=== PATIENT | male | born 1935 | race Caucasian/White ===

== ENCOUNTER 2016-12-01 05:47 | Inpatient (IN) | payer OTHER ==
[2016-12-01 06:01] VITALS: BMI 25.9
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
[2016-12-01 08:23] LABS: BASOPHIL 0.4 % (0-2.0); MCH 27.5 pg (25.7-33.7); MCHC 32.6 g/dl (32.0-35.9); MEAN CELL VOLUME 84.4 fl (80-96); MEAN PLT VOLUME 6.8 fl (7.5-11.1); NEUTROPHILS 90.5 % (42.8-82.8); PLATELET COUNT 265 K/MM3 (134-434); RDW 19.5 % (11.9-15.9); WHITE BLOOD COUNT 14.4 K/mm3 (4.0-10.0)
[2016-12-01 08:42] LABS: ALBUMIN 4.3 g/dl (3.4-5.0); BILIRUBIN,TOTAL 0.4 mg/dL (0.2-1.0); CALCIUM 9.1 mg/dL (8.5-10.1); COCKROFT - GAULT 39.72; CREATININE 1.6 mg/dL (0.7-1.3); INR 3.98 (0.82-1.09); TOT PROT 7.2 g/dl (6.4-8.2)
[2016-12-01 08:43] LABS: TROPONIN I < 0.02 ng/ml (0.00-0.05)
[2016-12-01 09:20] LABS: URINE APPEARANCE CLEAR; URINE BILIRUBIN NEGATIVE (NEGATIVE); URINE COLOR LTYELLOW; URINE GLUCOSE (UA) NEGATIVE (NEGATIVE); URINE KETONE NEGATIVE (NEGATIVE); URINE LEUK ESTERASE NEGATIVE (NEGATIVE); URINE NITRITE NEGATIVE (NEGATIVE); URINE UROBILINOGEN NEGATIVE E.U./dl (0.2-1.0)
--- NOTE | 2016-12-01 09:22 | EKG ---
Test Reason : Blood Pressure : / mmHG Vent. Rate : 076 BPM Atrial Rate : 076 BPM P-R Int : 134 ms QRS Dur : 082 ms QT Int : 396 ms P-R-T Axes : 074 000 055 degrees QTc Int : 445 ms NORMAL SINUS RHYTHM NORMAL ECG WHEN COMPARED WITH ECG OF 16-OCT-2014 13:43, NO SIGNIFICANT CHANGE WAS FOUND Confirmed by ZEKE MERRITT MD ([id number]) on 12/01/2016 9:22:11 AM Referred By: Confirmed By:ZEKE MERRITT MD
[2016-12-01 09:28] LABS: URINE BLOOD 1+ (NEGATIVE); URINE PROTEIN 1+ (NEGATIVE)
[2016-12-01 09:29] LABS: GRANULAR CASTS 57 /lpf; URINE MUCUS RARE; URINE RBC 1 /hpf (0-3); URINE WBC 1 /hpf (3-5)
--- NOTE | 2016-12-01 12:25 | PN ---
Progress Note (short form) - Note Progress Note: ID Consult dictated 81 y/o male PMH AIDS, COPD, PE/DVT metastatic prostate ca admitted s/p fall Possible sepsis Pending sepsis workup, empiric ceftriaxone
[2016-12-01] MEDS ORDERED: CEFTRIAXONE 50 ML ONE (12:42)
--- NOTE | 2016-12-01 13:13 | CONS ---
DATE OF CONSULTATION: DATE OF DICTATION: 12/01/2016 HISTORY OF PRESENT ILLNESS: The patient is an 81-year-old male evaluated for possible sepsis. The patient reports taking Ambien and an oxycodone last evening before bed. He reports that he woke up at approximately 5:00 a.m. to urinate. Upon getting up, he felt dizzy. Patient had a mechanical fall, sustaining trauma to his extremities. He denies any head trauma or loss of consciousness. He was taken to the emergency room, where he was evaluated. He was noted to have a mildly elevated white blood cell count of 14,000. The patient complains of generalized weakness and lower extremity pain. He has significant peripheral neuropathy secondary to his HIV and also has bone pain secondary to metastatic prostate cancer. He denies any recent febrile illness or shaking chills. No complaints of chest pain, shortness of breath, cough, sputum production. No dysuria or hematuria. No vomiting or diarrhea. PAST MEDICAL HISTORY: Positive for acquired immunodeficiency syndrome. He has been positive for many years. He has been stable for many years on antiretroviral therapy. His viral load has been undetectable. However, T-cell count ranges in the 150 to 200 range. Past medical history also positive for chronic obstructive pulmonary disease, history of pulmonary embolism, DVT, metastatic prostate cancer. ALLERGIES: No known allergies. MEDICATIONS AT HOME: Include Epzicom, Viramune, Bactrim, Coumadin. He received Lupron injections for his metastatic prostate cancer. He also takes Neurontin for peripheral neuropathy. SOCIAL HISTORY: Lives at home. He is a nonsmoker, nondrinker. SYSTEMS REVIEW: Neurologic: No loss of consciousness, seizure activity, focal weakness. Cardiac: Negative chest pain or palpitations. Respiratory: Negative cough or sputum production. Gastrointestinal: Negative vomiting or diarrhea. Genitourinary: Negative for urinary tract infection. LABORATORY DATA: White count 14.4, hematocrit 34.1, platelet count 265. BUN 20, creatinine 1.6, alkaline phosphatase 366. Chest x-ray: Negative for acute infiltrate. PHYSICAL EXAMINATION:General: He is awake and alert. He is weak appearing. Vital Signs: His temperature is 97.1, blood pressure 122/76, pulse 92 and regular, respiration 22 per minute. HEENT: Sclerae anicteric. Dry mucous membranes. Cardiac: Heart sounds S1, S2. Lungs: Crepitations at the right base. Scattered rhonchi. Abdomen: Soft. No tenderness elicited. No mass, rebound, or rigidity. Extremities: Edema 1+. He had some ecchymotic areas present on the left upper extremity. No other bruising noted. IMPRESSION: 1. Status post mechanical fall. 2. Possible sepsis. 3. Acquired immunodeficiency syndrome. 4. Metastatic prostate cancer. 5. History of chronic obstructive pulmonary disease. 6. History of pulmonary embolism and deep vein thrombosis. 7. Coagulopathy. RECOMMENDATIONS: Will admit for possible sepsis. Obtain cultures. Empiric antibiotic with ceftriaxone 1 g IV piggyback daily. Continue antiretroviral therapy and PCP prophylaxis. Hold Coumadin. Will follow. Thank you for the kind referral. ZEKE MUELLER M.D. LIDIA/[id number]
[2016-12-01] MEDS: ALBUTEROL SO4 2.5/IPRATROPIUM 0.5 INH SOL 3 ML VIAL.NEB. NEB SCH ×3 (13:15→13:41)
[2016-12-01] MEDS: SULFAMETHOXAZOLE/TRIMETHOPRIM 800MG/160MG D.S. TABLET PO SCH (13:16)
[2016-12-01] MEDS: ABACAVIR SULFATE 300 MG TABLET PO SCH (13:16)
[2016-12-01] MEDS: NEVIRAPINE 200 MG TABLET PO SCH ×2 (13:16→21:54)
[2016-12-01] MEDS: CEFTRIAXONE 50 ML IVPB SCH (13:16)
[2016-12-01] MEDS: lamiVUDine 150 MG TABLET PO SCH (13:16)
[2016-12-01] MEDS ORDERED: ALBUTEROL SO4 2.5/IPRATROPIUM 0.5 INH SOL 3 ML VIAL.NEB. NEB ONE (13:18)
[2016-12-01] MEDS ORDERED: ALBUTEROL SO4 2.5/IPRATROPIUM 0.5 INH SOL 3 ML VIAL.NEB. NEB PRN (14:10)
--- NOTE | 2016-12-01 14:20 | HP ---
CHIEF COMPLAINT:Fall PCP:[facility] Dr. 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 The patient states that he got up this morning at 5AM, became dizzy, and fell. He denies any head trauma or loss of consciousness. He does report taking oxycodone and ambien before going to bed last night. After he fell he couldn't get up and crawled to the phone to call the ambulance. He states his dizziness was only upon waking up and has now resolved. He lives at home by himself but his sister lives in the same building and she is 90 years old. Patient states he has pain in bilateral lower extremities and his right shoulder. He denies nausea, vomiting, cough, fevers, chills, chest pain, or shortness of breath. He denies hematuria or dysuria. Patient did seem short of breath during the interview but states that this is his breathing at baseline. Patient states he is unsure if he is willing to go to a rehab facility. PCP: Dr. Anurag Beach ER course was notable for: (1)Abx (2)Labs (3)Xrays Recent Travel:Denies PAST MEDICAL HISTORY:as above PAST SURGICAL HISTORY:knee surgery 25 years ago Social History: Smoking:Denies Alcohol:Denies Drugs: Denies Allergies No Known Allergies Allergy (Verified 12/01/16 06:00) HOME MEDICATIONS: Home Medications Medication Instructions Recorded Tenofovir Disoproxil Fumarate 300 mg PO DAILY@0800 #0 tablet 07/09/13 [Viread -] Albuterol Sulfate [Proair Hfa -] 1 - 2 inh PO ASDIR 03/06/14 Gabapentin 300 mg PO TID 03/06/14 Zolpidem Tartrate 10 mg PO DAILY 03/06/14 Abacavir Sulfate/Lamivudine 1 tab PO DAILY 12/01/16 [Epzicom -] Bicalutamide 50 mg PO DAILY 12/01/16 Nevirapine [Viramune] 400 mg PO DAILY 12/01/16 Oxycodone HCl/Acetaminophen 1 tab PO Q8H PRN 12/01/16 [Percocet 5-325 mg Tablet] Sulfamethoxazole/Trimethoprim 1 tab PO DAILY 12/01/16 [Bactrim DS -] Warfarin Sodium [Coumadin] 7 mg PO HS 12/01/16 REVIEW OF SYSTEMS CONSTITUTIONAL: Absent: fever, chills, diaphoresis, generalized weakness, malaise, loss of appetite, weight change HEENT: Absent: rhinorrhea, nasal congestion, throat pain, throat swelling, difficulty swallowing, mouth swelling, ear pain, eye pain, visual changes CARDIOVASCULAR: Absent: chest pain, syncope, palpitations, irregular heart rate, lightheadedness , peripheral edema RESPIRATORY: Absent: cough, shortness of breath, dyspnea with exertion, orthopnea, wheezing, stridor, hemoptysis GASTROINTESTINAL: Absent: abdominal pain, abdominal distension, nausea, vomiting, diarrhea, constipation, melena, hematochezia GENITOURINARY: Absent: dysuria, frequency, urgency, hesitancy, hematuria, flank pain, genital pain MUSCULOSKELETAL: Absent: myalgia, arthralgia, joint swelling, back pain, neck pain Present: Bilateral lower extremity pain and left shoulder pain SKIN: Absent: rash, itching, pallor HEMATOLOGIC/IMMUNOLOGIC: Absent: easy bleeding, easy bruising, lymphadenopathy, frequent infections ENDOCRINE: Absent: unexplained weight gain, unexplained weight loss, heat intolerance, cold intolerance NEUROLOGIC: Absent: headache, focal weakness or paresthesias, unsteady gait, seizure, mental status changes, bladder or bowel incontinence Present: dizziness PSYCHIATRIC: Absent: anxiety, depression, suicidal or homicidal ideation, hallucinations. Initial Vital Signs Temp Pulse Resp BP Pulse Ox 97.1 F L 92 H 22 122/76 98 12/01/16 06:00 12/01/16 06:00 12/01/16 06:00 12/01/16 06:00 12/01/16 06:00 PHYSICAL EXAMINATION GENERAL: Awake, alert, and fully oriented, in no acute distress HEAD: No signs of trauma EYES: PERRLA, EOMI, sclera anicteric, conjunctiva clear ENT: Auricles normal inspection, hearing grossly normal, nares patent, oropharynx clear without exudates. Moist mucosa NECK: Normal ROM, supple, no lymphadenopathy, JVD, or masses LUNGS: Breath sounds equal, clear to auscultation bilaterally. No wheezes, and no crackles HEART: Regular rate and rhythm, normal S1 and S2, no murmurs, rubs or gallops ABDOMEN: Soft, nontender, normoactive bowel sounds. No guarding, no rebound. No masses EXTREMITIES: R shoulder with mild tenderness to the proximal humerus. Remainder of extremities with normal range of motion, no edema. No clubbing or cyanosis. No cords, erythema, or tenderness NEUROLOGICAL: Cranial nerves II through XII grossly intact. Normal speech. Motor and sensation intact. SKIN: Warm, Dry, normal turgor, no rashes. Scattered ecchymoses to B/L forearms. CXR: Chronic lung disease no acute pathology all hip pelvis and shoulder XRays no acute pathology/sclerotic bone changes Active Medications Generic Name Dose Route Start Last Admin Trade Name Freq PRN Reason Stop Dose Admin Abacavir Sulfate 600 mg 12/01/16 12:30 12/01/16 13:16 Ziagen - PO 600 mg DAILY SERENE Administration Albuterol Sulfate 1 amp 12/01/16 14:15 12/01/16 14:46 Ventolin 0.083% Nebulizer Soln - NEB 1 amp QIDR SERENE Administration Albuterol/Ipratropium 1 amp 12/01/16 14:10 Duoneb - NEB Q4H PRN SHORTNESS OF BREATH Bicalutamide 50 mg 12/02/16 10:00 Casodex - PO DAILY SERENE Gabapentin 300 mg 12/01/16 22:00 Neurontin - PO TID SERENE Ceftriaxone Sodium 50 mls @ 200 mls/hr 12/01/16 12:30 12/01/16 13:16 Rocephin 1gm Ivpb (Pre-Docked) IVPB 200 mls/hr DAILY SERENE Administration Lamivudine 300 mg 12/01/16 12:30 12/01/16 13:16 Epivir - PO 300 mg DAILY SERENE Administration Nevirapine 200 mg 12/01/16 12:30 12/01/16 13:16 Viramune - PO 200 mg BID SERENE Administration Tramadol HCl 50 mg 12/01/16 14:54 Ultram - PO Q6H PRN PAIN Trimethoprim/Sulfamethoxazole 1 each 12/01/16 12:45 12/01/16 13:16 Bactrim Ds - PO 1 each DAILY SERENE Administration ASSESSMENT/PLAN: 81M with multiple medical problems presents to the ER s/p fall found to have supratherapeutic INR and leukocytosis in this immunocopmromised patient Sepsis: HR >90 with leukocytosis. Source remains unknown Admit to Med/Surg ID consult appreciated-empiric rocephin and bactrim UA negative f/u UCx f/u BCx trend WBC count history of DVT/PE-supratherapeutic INR: Hold coumadin for now Trend INR Transfuse FFP for any signs of bleeding Fall: likely from a combination of ambien and percocet taken night before Hold Percocet Hold ambien for now Fall precautions PT consult might need SNF for rehab HIV: Last CD4 <200 Viral load undetectable ID consult appreciated Bactrim DS 1 tab PO daily Ziagen Epivir and Viramune per ID COPD/Asthma:not in exacerbation f/u pulmonology consult-Dr. Erickson consulted by ED Marylin standing Albuterol PRN Prostate Ca: Continue Casodex Chronic pain: from metastasis to bone: continue gabapentin hold percocet give ultram PRN pain HTN: well controlled not on meds trend BP FEN: No IVF No electrolyte issues Regular diet PPx: SCDs/INR is supratherapeutic at this time No GI PPx indicated will start medication is has symptomatic GERD PT consult Visit type - Emergency Visit Emergency Visit: Yes ED Registration Date: 12/01/16 Care time: The patient presented to the Emergency Department on the above date and was hospitalized for further evaluation of their emergent condition. - New Patient This patient is new to me today: Yes Date on this admission: 12/01/16 - Critical Care Critical Care patient: No
[2016-12-01] MEDS ORDERED: ALBUTEROL SO4 0.083% IH SOL 2.5 MG/3 ML VIAL.NEB. NEB ONE (14:42)
[2016-12-01] MEDS: ALBUTEROL SO4 0.083% IH SOL 2.5 MG/3 ML VIAL.NEB. NEB SCH ×2 (14:46→18:39)
[2016-12-01] MEDS ORDERED: traMADol HCL 50 MG TABLET PO PRN (14:54)
--- NOTE | 2016-12-01 16:04 | CON.PULM ---
Consult - History of Present Illness Chief Complaint: weakness, recent fall History of Present Illness: 81 year old male with long history HIV, chronic interstitial lung disease, DM, peripheral neuropathy and history of DVT had a mechanical fall without LOC or head trauma. Pt feels weak and has malaise. He has chronic dyspnea and uses O2 at home but denies recent increase in dyspnea. No sputum, chest pain or palpitations. - History Source History Provided By: Patient, Medical Record Limitations to Obtaining History: Clinical Condition - Alcohol/Substance Use Hx Alcohol Use: No - Smoking History Smoking history: Never smoked Have you smoked in the past 12 months: No Aproximately how many cigarettes per day: 0 Home Medications - Allergies Allergies/Adverse Reactions: Allergies Allergy/AdvReac Type Severity Reaction Status Date / Time No Known Allergies Allergy Verified 12/01/16 06:00 - Home Medications Home Medications: Ambulatory Orders Tenofovir Disoproxil Fumarate [Viread -] 300 mg PO DAILY@0800 #0 tablet Albuterol Sulfate [Proair Hfa -] 1 - 2 inh PO ASDIR 03/06/14 Gabapentin 300 mg PO TID 03/06/14 Zolpidem Tartrate 10 mg PO DAILY 03/06/14 Abacavir Sulfate/Lamivudine [Epzicom -] 1 tab PO DAILY 12/01/16 Bicalutamide 50 mg PO DAILY 12/01/16 Nevirapine [Viramune] 400 mg PO DAILY 12/01/16 Oxycodone HCl/Acetaminophen [Percocet 5-325 mg Tablet] 1 tab PO Q8H PRN Sulfamethoxazole/Trimethoprim [Bactrim DS -] 1 tab PO DAILY 12/01/16 Warfarin Sodium [Coumadin] 7 mg PO HS 12/01/16 Review of Systems - Review of Systems Constitutional: denies: Chills, Fever Cardiovascular: denies: Chest Pain, Edema, Palpitations Respiratory: reports: SOB. denies: Cough, Hemoptysis, Wheezing Gastrointestinal: denies: Abdominal Pain, Rectal Bleeding, Vomiting Blood Neurological: reports: Unsteady Gait. denies: Change in LOC, Confusion, Seizure , Syncope Physical Exam Vital Sings: Vital Signs Temperature 97.1 F L 12/01/16 06:00 Pulse Rate 89 12/01/16 15:23 Respiratory Rate 20 12/01/16 15:23 Blood Pressure 101/55 12/01/16 15:23 O2 Sat by Pulse Oximetry (%) 95 12/01/16 15:23 Imaging - Results Chest X-ray: Report Reviewed, Image Reviewed (interstitial lung changes unchanged from 10/04) Problem List - Problems (1) Fall Code(s): W19.XXXA - UNSPECIFIED FALL, INITIAL ENCOUNTER Qualifiers: Encounter type: initial encounter Qualified Code(s): W19.XXXA - Unspecified fall, initial encounter (2) COPD (chronic obstructive pulmonary disease) Code(s): J44.9 - CHRONIC OBSTRUCTIVE PULMONARY DISEASE, UNSPECIFIED (3) HIV (human immunodeficiency virus infection) Code(s): Z21 - ASYMPTOMATIC HUMAN IMMUNODEFICIENCY VIRUS INFECTION STATUS (4) Prostate carcinoma Code(s): C61 - MALIGNANT NEOPLASM OF PROSTATE Assessment/Plan 81 year old male with history interstitial lung disease, COPD, P.E., DVT, HIV, Prostate Ca who had a mechanical fall without LOC. Pt has reduced lung function times many years but pt's lung function appears stable at present. Suggest Albuterol PRN O2 to maintain SaO2 >90 If dyspnea increases would increase bronchodilators . Thank you for referring this patient for consultation.
--- NOTE | 2016-12-01 16:49 | PN ---
Teaching Attending Note Name of Resident: Navjot Richey ATTENDING PHYSICIAN STATEMENT I saw and evaluated the patient. I reviewed the resident's note and discussed the case with the resident. I agree with the resident's findings and plan as documented. Vital Signs Temperature 97.1 F L 12/01/16 06:00 Pulse Rate 89 12/01/16 15:23 Respiratory Rate 20 12/01/16 15:23 Blood Pressure 101/55 12/01/16 15:23 O2 Sat by Pulse Oximetry (%) 95 12/01/16 15:23 CBCD WBC 14.4 K/mm3 (4.0-10.0) H D 12/01/16 08:10 RBC 4.04 M/mm3 (4.00-5.60) 12/01/16 08:10 Hgb 11.1 GM/dL (11.7-16.9) L 12/01/16 08:10 Hct 34.1 % (35.4-49) L 12/01/16 08:10 MCV 84.4 fl (80-96) 12/01/16 08:10 MCHC 32.6 g/dl (32.0-35.9) 12/01/16 08:10 RDW 19.5 % (11.9-15.9) H D 12/01/16 08:10 Plt Count 265 K/MM3 (134-434) 12/01/16 08:10 MPV 6.8 fl (7.5-11.1) L 12/01/16 08:10 CMP Sodium 135 mmol/L (136-145) L 12/01/16 08:10 Potassium 4.3 mmol/L (3.5-5.1) 12/01/16 08:10 Chloride 101 mmol/L (98-107) 12/01/16 08:10 Carbon Dioxide 26 mmol/L (21-32) 12/01/16 08:10 Anion Gap 8 (8-16) 12/01/16 08:10 BUN 20 mg/dL (7-18) H D 12/01/16 08:10 Creatinine 1.6 mg/dL (0.7-1.3) H D 12/01/16 08:10 Creat Clearance w eGFR 41.69 (>60) 12/01/16 08:10 Random Glucose 113 mg/dL (74-106) H 12/01/16 08:10 Calcium 9.1 mg/dL (8.5-10.1) 12/01/16 08:10 Total Bilirubin 0.4 mg/dL (0.2-1.0) D 12/01/16 08:10 AST 37 U/L (15-37) D 12/01/16 08:10 ALT 26 U/L (12-78) D 12/01/16 08:10 Alkaline Phosphatase 366 U/L (45-117) H 12/01/16 08:10 Total Protein 7.2 g/dl (6.4-8.2) 12/01/16 08:10 Albumin 4.3 g/dl (3.4-5.0) D 12/01/16 08:10 CARDIAC ENZYMES Creatine Kinase 124 IU/L (39-308) 12/01/16 08:10 Troponin I < 0.02 ng/ml (0.00-0.05) 12/01/16 08:10 Current Medications Generic Name Dose Route Start Last Admin Trade Name Freq PRN Reason Stop Dose Admin Abacavir Sulfate 600 mg 12/01/16 12:30 12/01/16 13:16 Ziagen - PO 600 mg DAILY SERENE Administration Albuterol Sulfate 1 amp 12/01/16 14:15 12/01/16 14:46 Ventolin 0.083% Nebulizer Soln - NEB 1 amp QIDR [facility]ENE Administration Albuterol/Ipratropium 1 amp 12/01/16 14:10 Duoneb - NEB Q4H PRN SHORTNESS OF BREATH Bicalutamide 50 mg 12/02/16 10:00 Casodex - PO DAILY SER[facility] Gabapentin 300 mg 12/01/16 22:00 Neurontin - PO TID SERENE Ceftriaxone Sodium 50 mls @ 200 mls/hr 12/01/16 12:30 12/01/16 13:16 Rocephin 1gm Ivpb (Pre-Docked) IVPB 200 mls/hr DAILY [facility] Administration Lamivudine 300 mg 12/01/16 12:30 12/01/16 13:16 Epivir - PO 300 mg DAILY [facility] Administration Nevirapine 200 mg 12/01/16 12:30 12/01/16 13:16 Viramune - PO 200 mg BID [facility] Administration Tramadol HCl 50 mg 12/01/16 14:54 Ultram - PO Q6H PRN PAIN Trimethoprim/Sulfamethoxazole 1 each 12/01/16 12:45 12/01/16 13:16 Bactrim Ds - PO 1 each DAILY [facility] Administration Home Medications Medication Instructions Recorded Tenofovir Disoproxil Fumarate 300 mg PO DAILY@0800 #0 tablet 07/09/13 [Viread -] Albuterol Sulfate [Proair Hfa -] 1 - 2 inh PO ASDIR 03/06/14 Gabapentin 300 mg PO TID 03/06/14 Zolpidem Tartrate 10 mg PO DAILY 03/06/14 Abacavir Sulfate/Lamivudine 1 tab PO DAILY 12/01/16 [Epzicom -] Bicalutamide 50 mg PO DAILY 12/01/16 Nevirapine [Viramune] 400 mg PO DAILY 12/01/16 Oxycodone HCl/Acetaminophen 1 tab PO Q8H PRN 12/01/16 [Percocet 5-325 mg Tablet] Sulfamethoxazole/Trimethoprim 1 tab PO DAILY 12/01/16 [Bactrim DS -] Warfarin Sodium [Coumadin] 7 mg PO HS 12/01/16 PE/ROS: as per resident's note ASSESSMENT AND PLAN: Patient is a 81M with multiple medical problems presents to the ER s/p fall found to have supratherapeutic INR and leukocytosis in this immunocompromised patient(HIV patient with CD4 count of 150) # Sepsis: with acute leukocytosis source unknown at this time ; ID consult appreciated-empiric rocephin and bactrim was started. UA negative ;f/u UCx ;f/u BCx ;trend WBC count #HIV: Last CD4 <200 Viral load undetectable ;ID consult appreciated Bactrim DS 1 tab PO daily ;Ziagen Epivir and Viramune per ID to continue discussed with # history of DVT/PE (recurrent PEs) with supratherapeutic INR: Hold coumadin for now , repeat PT/INR in am Transfuse FFP for any signs of bleeding # s/p Fall: likely from a combination of ambien and percocet taken night before hold ambien and percocet might need SNF for rehab , PT evaluation # hx of End stage COPD/Asthma: Dr. 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
[2016-12-01] MEDS ORDERED: ACETAMINOPHEN 325 MG TABLET (FP) PO PRN (19:14)
[2016-12-01] MEDS ORDERED: SODIUM CHLORIDE 0.45% 1,000 ML IV SCH ×2 (19:30)
[2016-12-01] MEDS ORDERED: PT OWN MED DRAWER 7, Y5N ONE (21:01)
[2016-12-01] MEDS: GABAPENTIN 300 MG CAPSULE (FP) PO SCH (21:52)
[2016-12-01] MEDS: traMADol HCL 50 MG TABLET PO PRN (22:04)
[2016-12-02] MEDS: ALBUTEROL SO4 0.083% IH SOL 2.5 MG/3 ML VIAL.NEB. NEB SCH ×5 (00:47→23:30)
[2016-12-02] MEDS: GABAPENTIN 300 MG CAPSULE (FP) PO SCH ×3 (06:29→21:31)
[2016-12-02 08:00] LABS: MCH 28.1 pg (25.7-33.7); MCHC 33.2 g/dl (32.0-35.9); MEAN CELL VOLUME 84.7 fl (80-96); MEAN PLT VOLUME 6.8 fl (7.5-11.1); PLATELET COUNT 214 K/MM3 (134-434); RDW 19.3 % (11.9-15.9); WHITE BLOOD COUNT 9.3 K/mm3 (4.0-10.0)
[2016-12-02 08:06] LABS: CALCIUM 8.1 mg/dL (8.5-10.1); COCKROFT - GAULT 48.89; CREATININE 1.3 mg/dL (0.7-1.3)
[2016-12-02 08:13] LABS: PROTHROMBIN TIME (PATIENT) 46.8 SEC (9.98-11.88)
[2016-12-02 08:29] LABS: INR 4.13 (0.82-1.09)
--- NOTE | 2016-12-02 09:33 | PN ---
Physical Exam: SUBJECTIVE: Patient seen and examined Patient is comfortable, no fever or chills, no shortness of breath. OBJECTIVE: Vital Signs Temperature 98.7 F 12/02/16 06:00 Pulse Rate 79 12/02/16 06:00 Respiratory Rate 20 12/02/16 06:00 Blood Pressure 104/50 12/02/16 06:00 O2 Sat by Pulse Oximetry (%) 95 12/01/16 15:23 GENERAL: The patient is awake, alert, and fully oriented, in no acute distress. HEAD: Normal with no signs of trauma. EYES: PERRL, extraocular movements intact, sclera anicteric, conjunctiva clear. ENT: Ears normal, oropharynx clear without exudates, moist mucous membranes. NECK: Trachea midline, full range of motion, supple. LUNGS: decreased Breath sounds at the basis , no wheezes, no crackles, no accessory muscle use. HEART: Regular rate and rhythm, S1, S2 without murmur, rub or gallop. ABDOMEN: Soft, nontender, nondistended, normoactive bowel sounds, no guarding, no rebound, no hepatosplenomegaly, no masses. EXTREMITIES: 2+ pulses, warm, well-perfused, no edema. NEUROLOGICAL: Cranial nerves II through XII grossly intact. Normal speech, gait not observed. PSYCH: Normal mood, normal affect. SKIN: Warm, dry, normal turgor, no rashes or lesions noted Laboratory Results - last 24 hr 12/02/16 12/02/16 12/02/16 06:00 06:00 06:00 WBC 9.3 D RBC 3.14 L D Hgb 8.8 L D Hct 26.6 L D MCV 84.7 MCHC 33.2 RDW 19.3 H Plt Count 214 MPV 6.8 L INR 4.13 H* Sodium 142 Potassium 4.6 Chloride 109 H Carbon Dioxide 25 Anion Gap 8 BUN 20 H Creatinine 1.3 Random Glucose 99 Calcium 8.1 L Active Medications Generic Name Dose Route Start Last Admin Trade Name Freq PRN Reason Stop Dose Admin Abacavir Sulfate 600 mg 12/01/16 12:30 12/01/16 13:16 Ziagen - PO 600 mg DAILY SERENE Administration Acetaminophen 325 mg 12/01/16 19:14 Tylenol - PO Q8H PRN FEVER OR PAIN Albuterol Sulfate 1 amp 12/01/16 14:15 12/02/16 06:58 Ventolin 0.083% Nebulizer Soln - NEB 1 amp QIDR SERENE Administration Albuterol/Ipratropium 1 amp 12/01/16 14:10 Duoneb - NEB Q4H PRN SHORTNESS OF BREATH Bicalutamide 50 mg 12/02/16 10:00 Casodex - PO DAILY SERENE Gabapentin 300 mg 12/01/16 22:00 12/02/16 06:29 Neurontin - PO 300 mg TID SER[facility] Administration Ceftriaxone Sodium 50 mls @ 200 mls/hr 12/01/16 12:30 12/01/16 13:16 Rocephin 1gm Ivpb (Pre-Docked) IVPB 200 mls/hr DAILY [facility] Administration Sodium Chloride 1,000 mls @ 42 mls/hr 12/01/16 19:30 12/01/16 21:53 1/2 Normal Saline IV 12/02/16 19:19 42 mls/hr ASDIR [facility] Administration Lamivudine 300 mg 12/01/16 12:30 12/01/16 13:16 Epivir - PO 300 mg DAILY [facility] Administration Nevirapine 200 mg 12/01/16 12:30 12/01/16 21:54 Viramune - PO 200 mg BID SERENE Administration Tramadol HCl 25 mg 12/01/16 19:13 12/01/16 22:04 Ultram - PO 25 mg Q8H PRN Administration PAIN Trimethoprim/Sulfamethoxazole 1 each 12/01/16 12:45 12/01/16 13:16 Bactrim Ds - PO 1 each DAILY SERENE Administration ASSESSMENT/PLAN: Patient is a 81M with multiple medical problems presents to the ER s/p fall found to have supratherapeutic INR and leukocytosis in this immunocopmromised patient(HIV patient with CD4 count of 150) # Sepsis: with acute leukocytosis source unknown at this time but improving; as per ID to continue empiric rocephin and bactrim UA negative ;pending UCx & BCx , WBC count improving #HIV: Last CD4 <200 Viral load undetectable ;ID on the case , placed the patient on Bactrim DS 1 tab PO daily ;Ziagen Epivir and Viramune per ID # history of DVT/PE (recurrent PEs) with supratherapeutic INR: Hold coumadin for now , repeat PT/INR in am Transfuse FFP for any signs of bleeding # s/p Fall: likely from a combination of ambien and percocet taken night before hold ambien and percocet might need SNF for rehab , PT evaluation # hx of End stage COPD/Asthma: consult-Dr. 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
[2016-12-02] MEDS ORDERED: PT OWN MED DRAWER 7, Y5N ONE ×3 (09:39→21:18)
[2016-12-02] MEDS: CEFTRIAXONE 50 ML IVPB SCH (09:53)
[2016-12-02] MEDS: ABACAVIR SULFATE 300 MG TABLET PO SCH (09:54)
[2016-12-02] MEDS: NEVIRAPINE 200 MG TABLET PO SCH ×2 (09:54→21:32)
[2016-12-02] MEDS: BICALUTAMIDE 50 MG TABLET (FP) PO SCH (09:54)
[2016-12-02] MEDS: SULFAMETHOXAZOLE/TRIMETHOPRIM 800MG/160MG D.S. TABLET PO SCH (09:54)
[2016-12-02] MEDS: lamiVUDine 150 MG TABLET PO SCH (09:54)
--- NOTE | 2016-12-02 10:24 | PN ---
Progress Note, Physician History of Present Illness: C/O generalized weakness, bilateral leg pains/numbness (chronic) No c/o fever/ chills Afebrile WBC normal Cultures prelim no growth - Current Medication List Current Medications: Active Medications Abacavir Sulfate (Ziagen -) 600 mg PO DAILY [facility] Last Admin: 12/02/16 09:54 Dose: 600 mg Acetaminophen (Tylenol -) 325 mg PO Q8H PRN PRN Reason: FEVER OR PAIN Albuterol Sulfate (Ventolin 0.083% Nebulizer Soln -) 1 amp NEB QIDR [facility] Last Admin: 12/02/16 06:58 Dose: 1 amp Albuterol/Ipratropium (Duoneb -) 1 amp NEB Q4H PRN PRN Reason: SHORTNESS OF BREATH Bicalutamide (Casodex -) 50 mg PO DAILY [facility] Last Admin: 12/02/16 09:54 Dose: 50 mg Gabapentin (Neurontin -) 300 mg PO TID [facility] Last Admin: 12/02/16 06:29 Dose: 300 mg Ceftriaxone Sodium (Rocephin 1gm Ivpb (Pre-Docked)) 50 mls @ 200 mls/hr IVPB DAILY [facility] Last Admin: 12/02/16 09:53 Dose: 200 mls/hr Sodium Chloride (1/2 Normal Saline) 1,000 mls @ 42 mls/hr IV ASDIR [facility] Stop: 12/02/16 19:19 Last Admin: 12/01/16 21:53 Dose: 42 mls/hr Lamivudine (Epivir -) 300 mg PO DAILY [facility] Last Admin: 12/02/16 09:54 Dose: 300 mg Nevirapine (Viramune -) 200 mg PO BID [facility] Last Admin: 12/02/16 09:54 Dose: 200 mg Tramadol HCl (Ultram -) 25 mg PO Q8H PRN PRN Reason: PAIN Last Admin: 12/01/16 22:04 Dose: 25 mg Trimethoprim/Sulfamethoxazole (Bactrim Ds -) 1 each PO DAILY [facility] Last Admin: 12/02/16 09:54 Dose: 1 each - Objective Vital Signs: Vital Signs Temperature 98.7 F 12/02/16 06:00 Pulse Rate 79 12/02/16 06:00 Respiratory Rate 20 12/02/16 06:00 Blood Pressure 104/50 12/02/16 06:00 O2 Sat by Pulse Oximetry (%) 95 12/01/16 15:23 Constitutional: Yes: No Distress Eyes: Yes: Other (+ ecchymotic area below R eye (not present yesterday)) Cardiovascular: Yes: Regular Rate and Rhythm, S1, S2 Respiratory: Yes: CTA Bilaterally Gastrointestinal: Yes: Normal Bowel Sounds, Soft. No: Tenderness Edema: Yes Edema: LLE: 1+, RLE: 1+ Labs: CBC, BMP 12/02/16 06:00 12/02/16 06:00 INR, PTT INR 4.13 (0.82-1.09) H* 12/02/16 06:00 Assessment/Plan S/P mechanical fall Coagulopathy secondary to coumadin Leukocytosis-resolved AIDS COPD Hx PE/DVT D/C ceftriaxone after today's dose, observe Continue ART/PCP prophylaxis
[2016-12-02] MEDS ORDERED: RANITIDINE HCL 150 MG TABLET (FP) PO ONE (12:05)
--- NOTE | 2016-12-02 17:24 | CONSULT ---
Consult Consult Specialty:: Nephrology Reason for Consultation:: elevated creatinine and hyponatremia - History of Present Illness Chief Complaint: presented s/p fall History of Present Illness: Pt is an 81 year old male with pmhx of HIV, COPD, GERD, HTN and anxiety who presents to the ER s/p fall. He was says she woke up in the morning and found himself dizzy and fell. He was found to have elevated creatinine and was found to be hyponatremic. He denies history of CKD. He is awake and alert. He denies dysuria or hematuria. He responded to fluids overnight. - History Source History Provided By: Patient, Medical Record - Past Medical History Cardio/Vascular: Yes: HTN Pulmonary: Yes: COPD Infectious Disease: Yes: HIV Psych: Yes: Anxiety - Alcohol/Substance Use Hx Alcohol Use: No - Smoking History Smoking history: Never smoked Have you smoked in the past 12 months: No Aproximately how many cigarettes per day: 0 Home Medications - Allergies Allergies/Adverse Reactions: Allergies Allergy/AdvReac Type Severity Reaction Status Date / Time No Known Allergies Allergy Verified 12/01/16 06:00 - Home Medications Home Medications: Ambulatory Orders Tenofovir Disoproxil Fumarate [Viread -] 300 mg PO DAILY@0800 #0 tablet Albuterol Sulfate [Proair Hfa -] 1 - 2 inh PO ASDIR 03/06/14 Gabapentin 300 mg PO TID 03/06/14 Zolpidem Tartrate 10 mg PO DAILY 03/06/14 Abacavir Sulfate/Lamivudine [Epzicom -] 1 tab PO DAILY 12/01/16 Bicalutamide 50 mg PO DAILY 12/01/16 Nevirapine [Viramune] 400 mg PO DAILY 12/01/16 Oxycodone HCl/Acetaminophen [Percocet 5-325 mg Tablet] 1 tab PO Q8H PRN Sulfamethoxazole/Trimethoprim [Bactrim DS -] 1 tab PO DAILY 12/01/16 Warfarin Sodium [Coumadin] 7 mg PO HS 12/01/16 Family Disease History - Family Disease History Family History: Denies Review of Systems - Review of Systems Constitutional: reports: No Symptoms Eyes: reports: No Symptoms HENT: reports: No Symptoms Neck: reports: No Symptoms Cardiovascular: reports: No Symptoms Respiratory: reports: No Symptoms Gastrointestinal: reports: No Symptoms Genitourinary: reports: No Symptoms Musculoskeletal: reports: No Symptoms Integumentary: reports: No Symptoms Neurological: reports: Dizziness Endocrine: reports: No Symptoms Hematology/Lymphatic: reports: No Symptoms Physical Exam Vital Signs: Vital Signs Temperature 98.1 F 12/02/16 13:51 Pulse Rate 73 12/02/16 13:51 Respiratory Rate 20 12/02/16 13:51 Blood Pressure 104/50 12/02/16 06:00 O2 Sat by Pulse Oximetry (%) 95 12/02/16 09:00 Constitutional: Yes: Calm Neck: Yes: Supple Cardiovascular: Yes: S1, S2 Respiratory: Yes: CTA Bilaterally Gastrointestinal: Yes: Soft Renal/: Yes: WNL Musculoskeletal: Yes: Muscle Weakness Edema: No Neurological: Yes: Oriented Psychiatric: Yes: Oriented Labs: CBC, BMP 12/02/16 06:00 12/02/16 06:00 Laboratory Tests 12/01/16 12/01/16 12/01/16 08:10 08:10 08:55 WBC 14.4 H D Hgb 11.1 L Sodium 135 L Potassium 4.3 Chloride Carbon Dioxide Anion Gap BUN 20 H D Creatinine 1.6 H D Random Glucose Calcium Urine Color Ltyellow Urine Appearance Clear Urine pH 5.0 Ur Specific Ary 1.020 Urine Protein 1+ H Urine Glucose (UA) Negative Urine Ketones Negative Urine Blood 1+ H Urine Nitrite Negative Urine Bilirubin Negative Urine Urobilinogen Negative Ur Leukocyte Esterase Negative 12/02/16 12/02/16 06:00 06:00 WBC Hgb 8.8 L D Sodium 142 Potassium 4.6 Chloride 109 H Carbon Dioxide 25 Anion Gap 8 BUN 20 H Creatinine 1.3 Random Glucose 99 Calcium 8.1 L Urine Color Urine Appearance Urine pH Ur Specific Ary Urine Protein Urine Glucose (UA) Urine Ketones Urine Blood Urine Nitrite Urine Bilirubin Urine Urobilinogen Ur Leukocyte Esterase Imaging - Results Chest X-ray: Report Reviewed Problem List - Problems (1) COPD (chronic obstructive pulmonary disease) Code(s): J44.9 - CHRONIC OBSTRUCTIVE PULMONARY DISEASE, UNSPECIFIED (2) Fall Code(s): W19.XXXA - UNSPECIFIED FALL, INITIAL ENCOUNTER Qualifiers: Encounter type: initial encounter Qualified Code(s): W19.XXXA - Unspecified fall, initial encounter (3) HIV (human immunodeficiency virus infection) Code(s): Z21 - ASYMPTOMATIC HUMAN IMMUNODEFICIENCY VIRUS INFECTION STATUS (4) Weakness Code(s): R53.1 - WEAKNESS (5) Hyponatremia Code(s): E87.1 - HYPO-OSMOLALITY AND HYPONATREMIA (6) Dehydration Code(s): E86.0 - DEHYDRATION Assessment/Plan Current Medications Generic Name Dose Route Start Last Admin Trade Name Freq PRN Reason Stop Dose Admin Abacavir Sulfate 600 mg 12/01/16 12:30 12/02/16 09:54 Ziagen - PO 600 mg DAILY [facility] Administration Acetaminophen 325 mg 12/01/16 19:14 Tylenol - PO Q8H PRN FEVER OR PAIN Albuterol Sulfate 1 amp 12/01/16 14:15 12/02/16 11:49 Ventolin 0.083% Nebulizer Soln - NEB Not Given QIDR SERENE Albuterol/Ipratropium 1 amp 12/01/16 14:10 Duoneb - NEB Q4H PRN SHORTNESS OF BREATH Bicalutamide 50 mg 12/02/16 10:00 12/02/16 09:54 Casodex - PO 50 mg DAILY [facility] Administration Gabapentin 300 mg 12/01/16 22:00 12/02/16 14:47 Neurontin - PO 300 mg TID [facility] Administration Ceftriaxone Sodium 50 mls @ 200 mls/hr 12/01/16 12:30 12/02/16 09:53 Rocephin 1gm Ivpb (Pre-Docked) IVPB 200 mls/hr DAILY [facility] Administration Sodium Chloride 1,000 mls @ 42 mls/hr 12/01/16 19:30 12/01/16 21:53 1/2 Normal Saline IV 12/02/16 19:19 42 mls/hr ASDIR [facility] Administration Lamivudine 300 mg 12/01/16 12:30 12/02/16 09:54 Epivir - PO 300 mg DAILY [facility] Administration Nevirapine 200 mg 12/01/16 12:30 12/02/16 09:54 Viramune - PO 200 mg BID [facility] Administration Ranitidine HCl 150 mg 12/02/16 22:00 Zantac - PO BID [facility]ENE Tramadol HCl 25 mg 12/01/16 19:13 12/01/16 22:04 Ultram - PO 25 mg Q8H PRN Administration PAIN Trimethoprim/Sulfamethoxazole 1 each 12/01/16 12:45 12/02/16 09:54 Bactrim Ds - PO 1 each DAILY [facility] Administration Impression 1. hyponatremia resolved 2. dehydration 3. HIV 4. HTN 5. COPD Plan - cont fluids - repeat labs in am - renal function improving - change fluids to ns - will follow - elevated creatinine likely from dehydration - check renal ultrasound Dr Schrader
[2016-12-02] MEDS: SODIUM CHLORIDE 1,000 ML IV SCH (18:45)
[2016-12-02] MEDS: RANITIDINE HCL 150 MG TABLET (FP) PO SCH (21:31)
[2016-12-03] MEDS: SODIUM CHLORIDE 1,000 ML IV SCH (06:18)
[2016-12-03] MEDS: GABAPENTIN 300 MG CAPSULE (FP) PO SCH ×3 (06:19→21:34)
[2016-12-03] MEDS: ALBUTEROL SO4 0.083% IH SOL 2.5 MG/3 ML VIAL.NEB. NEB SCH ×4 (06:29→23:16)
[2016-12-03 07:56] LABS: CALCIUM 8.8 mg/dL (8.5-10.1)
[2016-12-03 07:58] LABS: COCKROFT - GAULT 57.78; CREATININE 1.1 mg/dL (0.7-1.3)
[2016-12-03] MEDS ORDERED: PT OWN MED DRAWER 7, Y5N ONE (10:21)
[2016-12-03] MEDS: NEVIRAPINE 200 MG TABLET PO SCH ×2 (10:31→21:34)
[2016-12-03] MEDS: SULFAMETHOXAZOLE/TRIMETHOPRIM 800MG/160MG D.S. TABLET PO SCH (10:32)
[2016-12-03] MEDS: lamiVUDine 150 MG TABLET PO SCH (10:32)
[2016-12-03] MEDS: BICALUTAMIDE 50 MG TABLET (FP) PO SCH (10:32)
[2016-12-03] MEDS: ABACAVIR SULFATE 300 MG TABLET PO SCH (10:32)
[2016-12-03] MEDS: RANITIDINE HCL 150 MG TABLET (FP) PO SCH ×2 (10:33→21:35)
--- NOTE | 2016-12-03 12:54 | PN ---
Teaching Attending Note Name of Resident: Navjot Richey ATTENDING PHYSICIAN STATEMENT I saw and evaluated the patient. I reviewed the resident's note and discussed the case with the resident. I agree with the resident's findings and plan as documented. Vital Signs Temperature 98.2 F 12/03/16 06:00 Pulse Rate 70 12/03/16 06:00 Respiratory Rate 20 12/03/16 06:00 Blood Pressure 122/58 12/03/16 06:00 O2 Sat by Pulse Oximetry (%) 97 12/02/16 21:00 CBCD WBC 9.3 K/mm3 (4.0-10.0) D 12/02/16 06:00 RBC 3.14 M/mm3 (4.00-5.60) L D 12/02/16 06:00 Hgb 8.8 GM/dL (11.7-16.9) L D 12/02/16 06:00 Hct 26.6 % (35.4-49) L D 12/02/16 06:00 MCV 84.7 fl (80-96) 12/02/16 06:00 MCHC 33.2 g/dl (32.0-35.9) 12/02/16 06:00 RDW 19.3 % (11.9-15.9) H 12/02/16 06:00 Plt Count 214 K/MM3 (134-434) 12/02/16 06:00 MPV 6.8 fl (7.5-11.1) L 12/02/16 06:00 CMP Sodium 141 mmol/L (136-145) 12/03/16 06:25 Potassium 4.0 mmol/L (3.5-5.1) 12/03/16 06:25 Chloride 108 mmol/L (98-107) H 12/03/16 06:25 Carbon Dioxide 23 mmol/L (21-32) 12/03/16 06:25 Anion Gap 10 (8-16) 12/03/16 06:25 BUN 10 mg/dL (7-18) D 12/03/16 06:25 Creatinine 1.1 mg/dL (0.7-1.3) 12/03/16 06:25 Creat Clearance w eGFR 41.69 (>60) 12/01/16 08:10 Random Glucose 95 mg/dL (74-106) 12/03/16 06:25 Calcium 8.8 mg/dL (8.5-10.1) 12/03/16 06:25 Total Bilirubin 0.4 mg/dL (0.2-1.0) D 12/01/16 08:10 AST 37 U/L (15-37) D 12/01/16 08:10 ALT 26 U/L (12-78) D 12/01/16 08:10 Alkaline Phosphatase 366 U/L (45-117) H 12/01/16 08:10 Total Protein 7.2 g/dl (6.4-8.2) 12/01/16 08:10 Albumin 4.3 g/dl (3.4-5.0) D 12/01/16 08:10 CARDIAC ENZYMES Creatine Kinase 124 IU/L (39-308) 12/01/16 08:10 Troponin I < 0.02 ng/ml (0.00-0.05) 12/01/16 08:10 Current Medications Generic Name Dose Route Start Last Admin Trade Name Freq PRN Reason Stop Dose Admin Abacavir Sulfate 600 mg 12/01/16 12:30 12/03/16 10:32 Ziagen - PO 600 mg DAILY [facility] Administration Acetaminophen 325 mg 12/01/16 19:14 Tylenol - PO Q8H PRN FEVER OR PAIN Albuterol Sulfate 1 amp 12/01/16 14:15 12/03/16 11:25 Ventolin 0.083% Nebulizer Soln - NEB 1 amp QIDR [facility] Administration Albuterol/Ipratropium 1 amp 12/01/16 14:10 Duoneb - NEB Q4H PRN SHORTNESS OF BREATH Bicalutamide 50 mg 12/02/16 10:00 12/03/16 10:32 Casodex - PO 50 mg DAILY [facility] Administration Gabapentin 300 mg 12/01/16 22:00 12/03/16 06:19 Neurontin - PO 300 mg TID [facility] Administration Sodium Chloride 1,000 mls @ 42 mls/hr 12/02/16 17:30 12/03/16 06:18 Normal Saline - IV 42 mls/hr ASDIR [facility] Administration Lamivudine 300 mg 12/01/16 12:30 12/03/16 10:32 Epivir - PO 300 mg DAILY [facility] Administration Nevirapine 200 mg 12/01/16 12:30 12/03/16 10:31 Viramune - PO 200 mg BID [facility] Administration Ranitidine HCl 150 mg 12/02/16 22:00 12/03/16 10:33 Zantac - PO 150 mg BID [facility] Administration Tramadol HCl 25 mg 12/01/16 19:13 12/01/16 22:04 Ultram - PO 25 mg Q8H PRN Administration PAIN Trimethoprim/Sulfamethoxazole 1 each 12/01/16 12:45 12/03/16 10:32 Bactrim Ds - PO 1 each DAILY [facility] Administration Home Medications Medication Instructions Recorded Tenofovir Disoproxil Fumarate 300 mg PO DAILY@0800 #0 tablet 07/09/13 [Viread -] Albuterol Sulfate [Proair Hfa -] 1 - 2 inh PO ASDIR 03/06/14 Gabapentin 300 mg PO TID 03/06/14 Zolpidem Tartrate 10 mg PO DAILY 03/06/14 Abacavir Sulfate/Lamivudine 1 tab PO DAILY 12/01/16 [Epzicom -] Bicalutamide 50 mg PO DAILY 12/01/16 Nevirapine [Viramune] 400 mg PO DAILY 12/01/16 Oxycodone HCl/Acetaminophen 1 tab PO Q8H PRN 12/01/16 [Percocet 5-325 mg Tablet] Sulfamethoxazole/Trimethoprim 1 tab PO DAILY 12/01/16 [Bactrim DS -] Warfarin Sodium [Coumadin] 7 mg PO HS 12/01/16 ASSESSMENT AND PLAN: Patient is a 81M with multiple medical problems presents to the ER s/p fall found to have supratherapeutic INR and leukocytosis in this immunocompromised patient(HIV patient with CD4 count of 150) #S/p Sepsis: improved leukocytosis , Off IV rocephin now as per ID , continue bactrim as per ID; UA negative so far , UCx ;f/u BCx negative so far. Last CD4 <200 Viral load undetectable ;ID consult appreciated continue Ziagen Epivir and Viramune per ID # history of DVT/PE (recurrent PEs) continue coumadin since INR is 1.6 will restart coumadin for now , repeat PT/INR in am Transfuse FFP for any signs of bleeding , # s/p Fall: likely from a combination of ambien and percocet taken night before hold ambien and percocet possible SNF , PT evaluation # hx of End stage COPD/Asthma: consult-Dr. 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
--- NOTE | 2016-12-03 14:54 | PN ---
Physical Exam: SUBJECTIVE: Patient seen and examined at bedside no complaints OBJECTIVE: Vital Signs Period Temp Pulse Resp BP Sys/Bee Pulse Ox Last 24 Hr 97.8 F-99.1 F 70-85 20-20 122-146/58-78 97 GENERAL: Awake, alert, and fully oriented, in no acute distress HEAD: No signs of trauma EYES: PERRLA, EOMI, sclera anicteric, conjunctiva clear ENT: Auricles normal inspection, hearing grossly normal, nares patent, oropharynx clear without exudates. Moist mucosa NECK: Normal ROM, supple, no lymphadenopathy, JVD, or masses LUNGS: Breath sounds equal, clear to auscultation bilaterally. No wheezes, and no crackles HEART: Regular rate and rhythm, normal S1 and S2, no murmurs, rubs or gallops ABDOMEN: Soft, nontender, normoactive bowel sounds. No guarding, no rebound. No masses EXTREMITIES: R shoulder with mild tenderness to the proximal humerus. Remainder of extremities with normal range of motion, no edema. No clubbing or cyanosis. No cords, erythema, or tenderness NEUROLOGICAL: Cranial nerves II through XII grossly intact. Normal speech. Motor and sensation intact. SKIN: Warm, Dry, normal turgor, no rashes. Scattered ecchymoses to B/L forearms. Laboratory Results - last 24 hr 12/03/16 06:25 Sodium 141 Potassium 4.0 Chloride 108 H Carbon Dioxide 23 Anion Gap 10 BUN 10 D Creatinine 1.1 Random Glucose 95 Calcium 8.8 Active Medications Generic Name Dose Route Start Last Admin Trade Name Freq PRN Reason Stop Dose Admin Abacavir Sulfate 600 mg 12/01/16 12:30 12/03/16 10:32 Ziagen - PO 600 mg DAILY [facility]ENE Administration Acetaminophen 325 mg 12/01/16 19:14 Tylenol - PO Q8H PRN FEVER OR PAIN Albuterol Sulfate 1 amp 12/01/16 14:15 12/03/16 11:25 Ventolin 0.083% Nebulizer Soln - NEB 1 amp QIDR [facility] Administration Albuterol/Ipratropium 1 amp 12/01/16 14:10 Duoneb - NEB Q4H PRN SHORTNESS OF BREATH Bicalutamide 50 mg 12/02/16 10:00 12/03/16 10:32 Casodex - PO 50 mg DAILY [facility] Administration Gabapentin 300 mg 12/01/16 22:00 12/03/16 06:19 Neurontin - PO 300 mg TID [facility] Administration Sodium Chloride 1,000 mls @ 42 mls/hr 12/02/16 17:30 12/03/16 06:18 Normal Saline - IV 42 mls/hr ASDIR [facility] Administration Lamivudine 300 mg 12/01/16 12:30 12/03/16 10:32 Epivir - PO 300 mg DAILY [facility] Administration Nevirapine 200 mg 12/01/16 12:30 12/03/16 10:31 Viramune - PO 200 mg BID [facility] Administration Ranitidine HCl 150 mg 12/02/16 22:00 12/03/16 10:33 Zantac - PO 150 mg BID [facility] Administration Tramadol HCl 25 mg 12/01/16 19:13 12/01/16 22:04 Ultram - PO 25 mg Q8H PRN Administration PAIN Trimethoprim/Sulfamethoxazole 1 each 12/01/16 12:45 12/03/16 10:32 Bactrim Ds - PO 1 each DAILY [facility] Administration ASSESSMENT/PLAN: 81M with multiple medical problems presents to the ER s/p fall found to have supratherapeutic INR and leukocytosis in this immunocopmromised patient Sepsis: HR >90 with leukocytosis. Source remains unknown Admit to Med/Surg ID consult appreciated-continue empiric bactrim for PCP prophylaxis UA negative f/u UCx-negative f/u BCx-NGTD leukocytosis resolved history of DVT/PE-supratherapeutic INR: Hold coumadin for now Trend INR-still elevated KAYODE: likely from dehydration/volume depletion nephrology consult appreciated continue light IVF for hydration Cr normalized 1.1 today Fall: likely from a combination of ambien and percocet taken night before Hold Percocet Hold ambien for now Fall precautions PT consult SNF for rehab HIV: Last CD4 <200 Viral load undetectable ID consult appreciated Bactrim DS 1 tab PO daily Ziagen Epivir and Viramune per ID COPD/Asthma:not in exacerbation f/u pulmonology consult-Dr. 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 - New Patient This patient is new to me today: No - Critical Care Critical Care patient: No - Discharge Referral Referred to [facility] Med P.C.: No
[2016-12-03] MEDS: traMADol HCL 50 MG TABLET PO PRN (16:00)
--- NOTE | 2016-12-03 18:53 | PN ---
Progress Note, Physician History of Present Illness: Pt seen and examined at bedside. He is awake and alert. He denies dysuria or hematuria. - Current Medication List Current Medications: Active Medications Abacavir Sulfate (Ziagen -) 600 mg PO DAILY [facility] Last Admin: 12/03/16 10:32 Dose: 600 mg Acetaminophen (Tylenol -) 325 mg PO Q8H PRN PRN Reason: FEVER OR PAIN Albuterol Sulfate (Ventolin 0.083% Nebulizer Soln -) 1 amp NEB QIDR [facility] Last Admin: 12/03/16 17:36 Dose: 1 amp Albuterol/Ipratropium (Duoneb -) 1 amp NEB Q4H PRN PRN Reason: SHORTNESS OF BREATH Bicalutamide (Casodex -) 50 mg PO DAILY [facility] Last Admin: 12/03/16 10:32 Dose: 50 mg Gabapentin (Neurontin -) 300 mg PO TID [facility] Last Admin: 12/03/16 15:56 Dose: 300 mg Sodium Chloride (Normal Saline -) 1,000 mls @ 42 mls/hr IV ASDIR [facility] Last Admin: 12/03/16 06:18 Dose: 42 mls/hr Lamivudine (Epivir -) 300 mg PO DAILY [facility] Last Admin: 12/03/16 10:32 Dose: 300 mg Nevirapine (Viramune -) 200 mg PO BID [facility] Last Admin: 12/03/16 10:31 Dose: 200 mg Ranitidine HCl (Zantac -) 150 mg PO BID [facility] Last Admin: 12/03/16 10:33 Dose: 150 mg Tramadol HCl (Ultram -) 25 mg PO Q8H PRN PRN Reason: PAIN Last Admin: 12/03/16 16:00 Dose: 25 mg Trimethoprim/Sulfamethoxazole (Bactrim Ds -) 1 each PO DAILY [facility] Last Admin: 12/03/16 10:32 Dose: 1 each - Objective Vital Signs: Vital Signs Temperature 97.6 F 12/03/16 18:27 Pulse Rate 73 12/03/16 18:27 Respiratory Rate 20 12/03/16 18:27 Blood Pressure 145/74 12/03/16 18:27 O2 Sat by Pulse Oximetry (%) 97 12/03/16 09:00 Constitutional: Yes: Calm Eyes: Yes: Conjunctiva Clear HENT: Yes: Atraumatic Neck: Yes: Supple Cardiovascular: Yes: S1, S2 Respiratory: Yes: CTA Bilaterally Gastrointestinal: Yes: Soft Genitourinary: Yes: WNL Musculoskeletal: Yes: WNL Edema: No Neurological: Yes: Oriented Psychiatric: Yes: Oriented Labs: CBC, BMP 12/02/16 06:00 12/03/16 06:25 INR, PTT INR 4.13 (0.82-1.09) H* 12/02/16 06:00 Problem List - Problems (1) COPD (chronic obstructive pulmonary disease) Code(s): J44.9 - CHRONIC OBSTRUCTIVE PULMONARY DISEASE, UNSPECIFIED (2) Fall Code(s): W19.XXXA - UNSPECIFIED FALL, INITIAL ENCOUNTER Qualifiers: Encounter type: initial encounter Qualified Code(s): W19.XXXA - Unspecified fall, initial encounter (3) HIV (human immunodeficiency virus infection) Code(s): Z21 - ASYMPTOMATIC HUMAN IMMUNODEFICIENCY VIRUS INFECTION STATUS (4) Weakness Code(s): R53.1 - WEAKNESS (5) Hyponatremia Code(s): E87.1 - HYPO-OSMOLALITY AND HYPONATREMIA (6) Dehydration Code(s): E86.0 - DEHYDRATION Assessment/Plan Current Medications Generic Name Dose Route Start Last Admin Trade Name Freq PRN Reason Stop Dose Admin Abacavir Sulfate 600 mg 12/01/16 12:30 12/03/16 10:32 Ziagen - PO 600 mg DAILY [facility] Administration Acetaminophen 325 mg 12/01/16 19:14 Tylenol - PO Q8H PRN FEVER OR PAIN Albuterol Sulfate 1 amp 12/01/16 14:15 12/03/16 17:36 Ventolin 0.083% Nebulizer Soln - NEB 1 amp QIDR [facility] Administration Albuterol/Ipratropium 1 amp 12/01/16 14:10 Duoneb - NEB Q4H PRN SHORTNESS OF BREATH Bicalutamide 50 mg 12/02/16 10:00 12/03/16 10:32 Casodex - PO 50 mg DAILY [facility] Administration Gabapentin 300 mg 12/01/16 22:00 12/03/16 15:56 Neurontin - PO 300 mg TID [facility] Administration Sodium Chloride 1,000 mls @ 42 mls/hr 12/02/16 17:30 12/03/16 06:18 Normal Saline - IV 42 mls/hr ASDIR [facility] Administration Lamivudine 300 mg 12/01/16 12:30 12/03/16 10:32 Epivir - PO 300 mg DAILY [facility] Administration Nevirapine 200 mg 12/01/16 12:30 12/03/16 10:31 Viramune - PO 200 mg BID [facility] Administration Ranitidine HCl 150 mg 12/02/16 22:00 12/03/16 10:33 Zantac - PO 150 mg BID [facility] Administration Tramadol HCl 25 mg 12/01/16 19:13 12/03/16 16:00 Ultram - PO 25 mg Q8H PRN Administration PAIN Trimethoprim/Sulfamethoxazole 1 each 12/01/16 12:45 12/03/16 10:32 Bactrim Ds - PO 1 each DAILY [facility] Administration Impression 1. hyponatremia resolved 2. dehydration 3. HIV 4. HTN 5. COPD Plan - renal function is improved - repeat labs in am - will stop fluids - renal ultrasound reviewed, cyst should be followed up - u/s suspicious for medical renal disease, can do workup as outpt Dr Schrader
[2016-12-04 02:03] LABS: BASOPHIL 1.4 % (0-2.0); EOSINOPHIL 3.1 % (0-4.5); MCH 27.4 pg (25.7-33.7); MCHC 32.6 g/dl (32.0-35.9); MEAN CELL VOLUME 84.2 fl (80-96); MEAN PLT VOLUME 6.8 fl (7.5-11.1); NEUTROPHILS 70.6 % (42.8-82.8); PLATELET COUNT 264 K/MM3 (134-434); RDW 20.4 % (11.9-15.9); WHITE BLOOD COUNT 6.1 K/mm3 (4.0-10.0)
[2016-12-04 02:12] LABS: INR 1.66 (0.82-1.09); PROTHROMBIN TIME (PATIENT) 18.4 SEC (9.98-11.88)
[2016-12-04] MEDS: GABAPENTIN 300 MG CAPSULE (FP) PO SCH ×2 (05:58→14:03)
[2016-12-04] MEDS: ALBUTEROL SO4 0.083% IH SOL 2.5 MG/3 ML VIAL.NEB. NEB SCH ×2 (07:04→11:01)
[2016-12-04 08:34] LABS: INR 1.51 (0.82-1.09); PROTHROMBIN TIME (PATIENT) 16.7 SEC (9.98-11.88)
[2016-12-04 08:42] LABS: CALCIUM 9.1 mg/dL (8.5-10.1); COCKROFT - GAULT 52.96; CREATININE 1.2 mg/dL (0.7-1.3)
--- NOTE | 2016-12-04 09:57 | PN ---
[id number] List Current Medications: Active Medications Abacavir Sulfate (Ziagen -) 600 mg PO DAILY [facility] Last Admin: 12/03/16 10:32 Dose: 600 mg Acetaminophen (Tylenol -) 325 mg PO Q8H PRN PRN Reason: FEVER OR PAIN Albuterol Sulfate (Ventolin 0.083% Nebulizer Soln -) 1 amp NEB QIDR [facility] Last Admin: 12/04/16 07:04 Dose: Not Given Albuterol/Ipratropium (Duoneb -) 1 amp NEB Q4H PRN PRN Reason: SHORTNESS OF BREATH Bicalutamide (Casodex -) 50 mg PO DAILY [facility] Last Admin: 12/03/16 10:32 Dose: 50 mg Gabapentin (Neurontin -) 300 mg PO TID [facility] Last Admin: 12/04/16 05:58 Dose: 300 mg Lamivudine (Epivir -) 300 mg PO DAILY [facility] Last Admin: 12/03/16 10:32 Dose: 300 mg Nevirapine (Viramune -) 200 mg PO BID [facility] Last Admin: 12/03/16 21:34 Dose: 200 mg Ranitidine HCl (Zantac -) 150 mg PO BID [facility] Last Admin: 12/03/16 21:35 Dose: 150 mg Tramadol HCl (Ultram -) 25 mg PO Q8H PRN PRN Reason: PAIN Last Admin: 12/03/16 16:00 Dose: 25 mg Trimethoprim/Sulfamethoxazole (Bactrim Ds -) 1 each PO DAILY [facility] Last Admin: 12/03/16 10:32 Dose: 1 each - Objective Vital Signs: Vital Signs Temperature 98.6 F 12/04/16 05:50 Pulse Rate 64 12/04/16 05:50 Respiratory Rate 20 12/04/16 05:50 Blood Pressure 118/56 12/04/16 05:50 O2 Sat by Pulse Oximetry (%) 96 12/03/16 21:00 Constitutional: Yes: No Distress Eyes: No: Sclera Icterus Neck: Yes: Supple, Trachea Midline Cardiovascular: Yes: Regular Rate and Rhythm Respiratory: Yes: Diminished (bilateral) Gastrointestinal: Yes: Soft. No: Tenderness Edema: No Neurological: Yes: Alert, Oriented Labs: CBC, BMP 12/04/16 01:50 12/04/16 06:00 INR, PTT INR 1.51 (0.82-1.09) H 12/04/16 06:00 SaO2 96% on room air by my measurement Problem List - Problems (1) Fall Code(s): W19.XXXA - UNSPECIFIED FALL, INITIAL ENCOUNTER Qualifiers: Encounter type: initial encounter Qualified Code(s): W19.XXXA - Unspecified fall, initial encounter (2) COPD (chronic obstructive pulmonary disease) Code(s): J44.9 - CHRONIC OBSTRUCTIVE PULMONARY DISEASE, UNSPECIFIED (3) HIV (human immunodeficiency virus infection) Code(s): Z21 - ASYMPTOMATIC HUMAN IMMUNODEFICIENCY VIRUS INFECTION STATUS (4) Prostate carcinoma Code(s): C61 - MALIGNANT NEOPLASM OF PROSTATE Assessment/Plan 81 year old male with history interstitial lung disease, COPD, P.E., DVT, HIV, Prostate Ca who had a mechanical fall without LOC. Pt has reduced lung function times many years but pt's lung function is stable at present. Suggest Albuterol PRN O2 to maintain SaO2 >90 Inhaled bronchodilators.
[2016-12-04] MEDS ORDERED: PT OWN MED DRAWER 7, Y5N ONE (11:06)
[2016-12-04] MEDS: lamiVUDine 150 MG TABLET PO SCH (11:10)
[2016-12-04] MEDS: RANITIDINE HCL 150 MG TABLET (FP) PO SCH (11:10)
[2016-12-04] MEDS: BICALUTAMIDE 50 MG TABLET (FP) PO SCH (11:10)
[2016-12-04] MEDS: SULFAMETHOXAZOLE/TRIMETHOPRIM 800MG/160MG D.S. TABLET PO SCH (11:10)
[2016-12-04] MEDS: NEVIRAPINE 200 MG TABLET PO SCH (11:11)
[2016-12-04] MEDS: ABACAVIR SULFATE 300 MG TABLET PO SCH (11:11)
--- NOTE | 2016-12-04 12:01 | PN ---
Progress Note, Physician History of Present Illness: No complaints No fever/ chills WBC WNL Cultures no growth - Current Medication List Current Medications: Active Medications Abacavir Sulfate (Ziagen -) 600 mg PO DAILY [facility] Last Admin: 12/04/16 11:11 Dose: 600 mg Acetaminophen (Tylenol -) 325 mg PO Q8H PRN PRN Reason: FEVER OR PAIN Albuterol Sulfate (Ventolin 0.083% Nebulizer Soln -) 1 amp NEB QIDR [facility] Last Admin: 12/04/16 11:01 Dose: 1 amp Albuterol/Ipratropium (Duoneb -) 1 amp NEB Q4H PRN PRN Reason: SHORTNESS OF BREATH Bicalutamide (Casodex -) 50 mg PO DAILY [facility] Last Admin: 12/04/16 11:10 Dose: 50 mg Gabapentin (Neurontin -) 300 mg PO TID [facility] Last Admin: 12/04/16 05:58 Dose: 300 mg Lamivudine (Epivir -) 300 mg PO DAILY [facility] Last Admin: 12/04/16 11:10 Dose: 300 mg Nevirapine (Viramune -) 200 mg PO BID [facility] Last Admin: 12/04/16 11:11 Dose: 200 mg Ranitidine HCl (Zantac -) 150 mg PO BID [facility] Last Admin: 12/04/16 11:10 Dose: 150 mg Tramadol HCl (Ultram -) 25 mg PO Q8H PRN PRN Reason: PAIN Last Admin: 12/03/16 16:00 Dose: 25 mg Trimethoprim/Sulfamethoxazole (Bactrim Ds -) 1 each PO DAILY [facility] Last Admin: 12/04/16 11:10 Dose: 1 each - Objective Vital Signs: Vital Signs Temperature 98.6 F 12/04/16 05:50 Pulse Rate 64 12/04/16 05:50 Respiratory Rate 20 12/04/16 05:50 Blood Pressure 118/56 12/04/16 05:50 O2 Sat by Pulse Oximetry (%) 96 12/03/16 21:00 Constitutional: Yes: No Distress Eyes: Yes: Conjunctiva Clear Cardiovascular: Yes: Regular Rate and Rhythm, S1, S2 Respiratory: Yes: CTA Bilaterally Gastrointestinal: Yes: Normal Bowel Sounds, Soft. No: Tenderness Edema: No Labs: CBC, BMP 12/04/16 01:50 12/04/16 06:00 INR, PTT INR 1.51 (0.82-1.09) H 12/04/16 06:00 Assessment/Plan S/P mechanical fall Coagulopathy secondary to coumadin- resolved Leukocytosis-resolved AIDS COPD Hx PE/DVT Observe off antibiotics Continue ART/PCP prophylaxis
--- NOTE | 2016-12-04 13:59 | PN ---
Progress Note, Physician History of Present Illness: Pt seen and examined at bedside. He is awake and alert. He has not had any falls or light headedness. - Current Medication List Current Medications: Active Medications Abacavir Sulfate (Ziagen -) 600 mg PO DAILY [facility] Last Admin: 12/04/16 11:11 Dose: 600 mg Acetaminophen (Tylenol -) 325 mg PO Q8H PRN PRN Reason: FEVER OR PAIN Albuterol Sulfate (Ventolin 0.083% Nebulizer Soln -) 1 amp NEB QIDR [facility] Last Admin: 12/04/16 11:01 Dose: 1 amp Albuterol/Ipratropium (Duoneb -) 1 amp NEB Q4H PRN PRN Reason: SHORTNESS OF BREATH Bicalutamide (Casodex -) 50 mg PO DAILY [facility] Last Admin: 12/04/16 11:10 Dose: 50 mg Gabapentin (Neurontin -) 300 mg PO TID [facility] Last Admin: 12/04/16 05:58 Dose: 300 mg Lamivudine (Epivir -) 300 mg PO DAILY [facility] Last Admin: 12/04/16 11:10 Dose: 300 mg Nevirapine (Viramune -) 200 mg PO BID [facility] Last Admin: 12/04/16 11:11 Dose: 200 mg Ranitidine HCl (Zantac -) 150 mg PO BID [facility] Last Admin: 12/04/16 11:10 Dose: 150 mg Tramadol HCl (Ultram -) 25 mg PO Q8H PRN PRN Reason: PAIN Last Admin: 12/03/16 16:00 Dose: 25 mg Trimethoprim/Sulfamethoxazole (Bactrim Ds -) 1 each PO DAILY [facility] Last Admin: 12/04/16 11:10 Dose: 1 each - Objective Vital Signs: Vital Signs Temperature 98.2 F 12/04/16 11:00 Pulse Rate 76 12/04/16 11:00 Respiratory Rate 18 12/04/16 11:00 Blood Pressure 134/99 12/04/16 11:00 O2 Sat by Pulse Oximetry (%) 96 12/04/16 09:00 Constitutional: Yes: Calm Eyes: Yes: Conjunctiva Clear HENT: Yes: Atraumatic Neck: Yes: Supple Cardiovascular: Yes: S1, S2 Respiratory: Yes: CTA Bilaterally Gastrointestinal: Yes: Normal Bowel Sounds, Soft Genitourinary: Yes: WNL Musculoskeletal: Yes: WNL Edema: No Neurological: Yes: Oriented Psychiatric: Yes: Oriented Labs: CBC, BMP 12/04/16 01:50 12/04/16 06:00 INR, PTT INR 1.51 (0.82-1.09) H 12/04/16 06:00 Problem List - Problems (1) COPD (chronic obstructive pulmonary disease) Code(s): J44.9 - CHRONIC OBSTRUCTIVE PULMONARY DISEASE, UNSPECIFIED (2) Fall Code(s): W19.XXXA - UNSPECIFIED FALL, INITIAL ENCOUNTER Qualifiers: Encounter type: initial encounter Qualified Code(s): W19.XXXA - Unspecified fall, initial encounter (3) HIV (human immunodeficiency virus infection) Code(s): Z21 - ASYMPTOMATIC HUMAN IMMUNODEFICIENCY VIRUS INFECTION STATUS (4) Weakness Code(s): R53.1 - WEAKNESS (5) Hyponatremia Code(s): E87.1 - HYPO-OSMOLALITY AND HYPONATREMIA (6) Dehydration Code(s): E86.0 - DEHYDRATION Assessment/Plan Current Medications Generic Name Dose Route Start Last Admin Trade Name Freq PRN Reason Stop Dose Admin Abacavir Sulfate 600 mg 12/01/16 12:30 12/04/16 11:11 Ziagen - PO 600 mg DAILY [facility] Administration Acetaminophen 325 mg 12/01/16 19:14 Tylenol - PO Q8H PRN FEVER OR PAIN Albuterol Sulfate 1 amp 12/01/16 14:15 12/04/16 11:01 Ventolin 0.083% Nebulizer Soln - NEB 1 amp QIDR [facility] Administration Albuterol/Ipratropium 1 amp 12/01/16 14:10 Duoneb - NEB Q4H PRN SHORTNESS OF BREATH Bicalutamide 50 mg 12/02/16 10:00 12/04/16 11:10 Casodex - PO 50 mg DAILY [facility] Administration Gabapentin 300 mg 12/01/16 22:00 12/04/16 05:58 Neurontin - PO 300 mg TID [facility] Administration Lamivudine 300 mg 12/01/16 12:30 12/04/16 11:10 Epivir - PO 300 mg DAILY [facility] Administration Nevirapine 200 mg 12/01/16 12:30 12/04/16 11:11 Viramune - PO 200 mg BID [facility] Administration Ranitidine HCl 150 mg 12/02/16 22:00 12/04/16 11:10 Zantac - PO 150 mg BID [facility] Administration Tramadol HCl 25 mg 12/01/16 19:13 12/03/16 16:00 Ultram - PO 25 mg Q8H PRN Administration PAIN Trimethoprim/Sulfamethoxazole 1 each 12/01/16 12:45 12/04/16 11:10 Bactrim Ds - PO 1 each DAILY [facility] Administration Impression 1. hyponatremia resolved 2. dehydration 3. HIV 4. HTN 5. COPD Plan - will see pt in office - discussed with ID - consider decreasing dose of ambien/sedatives - monitor renal function - will work up for ckd as outpt - will need repeat ultrasound to follow renal cyst Dr Schrader
[2016-12-04 14:24] VITALS: BP 156/90; PULSE 89; TEMP 98
--- NOTE | 2016-12-04 15:05 | DS ---
Physical Exam: SUBJECTIVE: Patient seen and examined at bedside no complaints no events overnight wants to go home OBJECTIVE: Vital Signs Period Temp Pulse Resp BP Sys/Bee Pulse Ox Last 24 Hr 97.6 F-99.1 F 64-89 18-20 118-156/56-99 96-96 PHYSICAL EXAM GENERAL: Awake, alert, and fully oriented, in no acute distress HEAD: No signs of trauma EYES: PERRLA, EOMI, sclera anicteric, conjunctiva clear ENT: Auricles normal inspection, hearing grossly normal, nares patent, oropharynx clear without exudates. Moist mucosa NECK: Normal ROM, supple, no lymphadenopathy, JVD, or masses LUNGS: Breath sounds equal, clear to auscultation bilaterally. No wheezes, and no crackles HEART: Regular rate and rhythm, normal S1 and S2, no murmurs, rubs or gallops ABDOMEN: Soft, nontender, normoactive bowel sounds. No guarding, no rebound. No masses EXTREMITIES: R shoulder with mild tenderness to the proximal humerus. Remainder of extremities with normal range of motion, no edema. No clubbing or cyanosis. No cords, erythema, or tenderness NEUROLOGICAL: Cranial nerves II through XII grossly intact. Normal speech. Motor and sensation intact. SKIN: Warm, Dry, normal turgor, no rashes. Scattered ecchymoses to B/L forearms. LABS Laboratory Results - last 24 hr 12/04/16 12/04/16 12/04/16 01:50 01:50 06:00 WBC 6.1 D RBC 3.16 L Hgb 8.7 L Hct 26.6 L MCV 84.2 MCHC 32.6 RDW 20.4 H Plt Count 264 D MPV 6.8 L Neutrophils % 70.6 D Lymphocytes % 14.5 D Monocytes % 10.4 H D Eosinophils % 3.1 D Basophils % 1.4 D INR 1.66 H D Sodium 142 Potassium 4.4 Chloride 108 H Carbon Dioxide 25 Anion Gap 9 BUN 11 Creatinine 1.2 Random Glucose 82 Calcium 9.1 12/04/16 06:00 WBC RBC Hgb Hct MCV MCHC RDW Plt Count MPV Neutrophils % Lymphocytes % Monocytes % Eosinophils % Basophils % INR 1.51 H Sodium Potassium Chloride Carbon Dioxide Anion Gap BUN Creatinine Random Glucose Calcium HOSPITAL COURSE: Date of Admission:12/01/16 Date of Discharge: 12/04/16 81M PMHx of asthma/COPD, GERD, HTN, HIV, DVT/PE on coumadin, Prostate Ca with metastasis to bone and anxiety, who presented to the ED s/p fal. The patient states that he got up in the morning at 5AM, became dizzy, and fell. He denies any head trauma or loss of consciousness. He does report taking oxycodone and ambien before going to bed last night. He came to the ED and was found to have leukocytosis and supratherapeutic INR. Seen by ID and restart on HAART and PCP PPx. All imaging negative for fractures of acute pathology. He also had KAYODE which resolved with IVF and was seen by nephrology. INR came back down and he was restarted on his coumadin. stable for discharge with follow up. Minutes to complete discharge: 45 Discharge Summary Reason For Visit: LEUKOCYTOSIS,WEAKNESS,FALL Condition: Improved - Instructions Diet, Activity, Other Instructions: continue your home medications stop the percocet stop the ambien as you have a risk for falls and you are on coumadin restart your coumadin if you have worsening of your symptoms go to the nearest emergency room Referrals: Anurag Beach MD [Primary Care Provider] - 1 Week Salvatore Erickson MD [Staff Physician] - 2 Weeks Disposition: HOME - Home Medications Comprehensive Discharge Medication List: Ambulatory Orders Tenofovir Disoproxil Fumarate [Viread -] 300 mg PO DAILY@0800 #0 tablet Albuterol Sulfate [Proair Hfa -] 1 - 2 inh PO ASDIR 03/06/14 Gabapentin 300 mg PO TID 03/06/14 Zolpidem Tartrate 10 mg PO DAILY 03/06/14 Abacavir Sulfate/Lamivudine [Epzicom -] 1 tab PO DAILY 12/01/16 Bicalutamide 50 mg PO DAILY 12/01/16 Nevirapine [Viramune] 400 mg PO DAILY 12/01/16 Oxycodone HCl/Acetaminophen [Percocet 5-325 mg Tablet] 1 tab PO Q8H PRN Sulfamethoxazole/Trimethoprim [Bactrim DS -] 1 tab PO DAILY 12/01/16 Warfarin Sodium [Coumadin] 7 mg PO HS 12/01/16 Acetaminophen [Tylenol .Regular Strength -] 325 mg PO Q8H PRN #0 tablet Tramadol HCl [Ultram -] 25 mg PO Q8H PRN #30 tablet MDD 3 tablets 12/04/16 This patient is new to me today: No Emergency Visit: Yes ED Registration Date: 12/01/16 Care time: The patient presented to the Emergency Department on the above date and was hospitalized for further evaluation of their emergent condition. Critical Care patient: No - Discharge Referral Referred to [facility] Med P.C.: No
== END 2016-12-04 14:45 | disposition home or self-care (01) | DRG 682 ==
LOC: JER 05:47 → JERBED 12:26 → UNDOADMIN 12:29 → J7W 17:30
PROVIDERS: ADMIT Internal Medicine; ATTEND Internal Medicine
DX: N17.9 Acute kidney failure, unspecified (principal); B20 Human immunodeficiency virus [HIV] disease; C79.51 Secondary malignant neoplasm of bone; J84.9 Interstitial pulmonary disease, unspecified; D68.32 Hemorrhagic disorder due to extrinsic circulating anticoagulants; E87.1 Hypo-osmolality and hyponatremia; K21.9 Gastro-esophageal reflux disease without esophagitis; J45.909 Unspecified asthma, uncomplicated; N40.0 Benign prostatic hyperplasia without lower urinary tract symptoms; D72.829 Elevated white blood cell count, unspecified; M25.512 Pain in left shoulder; M79.605 Pain in left leg; M79.604 Pain in right leg; W01.0XXA Fall on same level from slipping, tripping and stumbling without subsequent striking against object, initial encounter; Y93.89 Activity, other specified; Y92.003 Bedroom of unspecified non-institutional (private) residence as the place of occurrence of the external cause; Z86.711 Personal history of pulmonary embolism; Z79.01 Long term (current) use of anticoagulants; C61 Malignant neoplasm of prostate; G89.3 Neoplasm related pain (acute) (chronic); T45.515A Adverse effect of anticoagulants, initial encounter; E86.0 Dehydration; R42 Dizziness and giddiness; G62.9 Polyneuropathy, unspecified
CPT/HCPCS: 36415; 71020-TC; 72170-TC; 73030-TC-RT; 73502-TC-LT; 73502-TC-RT; 76775-TC; 76856-TC; 80048; 80053; 81003; 81015; 82550; 84484; 85025; 85027; 85610; 87040; 87086; 93005; 93010; 94640; 97116-GP; 97161-GP; 99284-25